=== PATIENT | male | born 1995 | race Caucasian/White ===

== ENCOUNTER 2017-02-11 18:33 | Emergency (ER) | payer OTHER ==
[~2017-02-11] VITALS: Ht 175.3 cm; Wt 98.5 kg
[~2017-02-11 18:33] MED LIST: NO MEDS
[2017-02-11 18:51] VITALS: Ht 175.3 cm; Wt 98.5 kg
--- NOTE | 2017-02-11 19:08 | ERA ---
ER Documentation Chief Complaint Date/Time DATE: 02/11/17 TIME: 19:08 Chief Complaint fell on his left shoulder HPI The patient is a 21-year-old male, presenting to the ER because he fell on the left shoulder about an hour prior to arrival. He denies any other injury, denies fever, chills, neck pain, chest pain, dyspnea, abdominal pain, vomiting. He does not smoke, drinks socially Past medical/surgical history: None ROS All systems reviewed and are negative except as per history of present illness. Medications Home Meds Active Scripts Ibuprofen* (Motrin*) 600 Mg Tab, 600 MG PO Q6H Y for PAIN AND OR ELEVATED TEMP, #20 TAB Prov:ELLIE NEWTON MD 02/11/17 Reported Medications [No Meds] No Conflict Check 08/22/10 Allergies Allergies: Coded Allergies: No Known Drug Allergies (Verified Allergy, Mild, 08/22/10) PMhx/Soc History of Surgery: No Anesthesia Reaction: No Hx Neurological Disorder: No Hx Respiratory Disorders: No Hx Cardiac Disorders: No Hx Psychiatric Problems: No Hx Miscellaneous Medical Probl: No Hx Alcohol Use: No Hx Substance Use: No Hx Tobacco Use: No Physical Exam Vitals Vital Signs Date Time Temp Pulse Resp B/P Pulse Ox O2 Delivery O2 Flow Rate FiO2 02/11/17 18:51 98.0 103 20 141/87 98 Physical Exam Const: No acute distress. Head: Atraumatic. Eyes: Normal Conjunctiva. ENT: Normal External Ears, Nose and Mouth. Neck: Full range of motion. No meningismus. Resp: Clear to auscultation bilaterally. Cardio: Regular rate and rhythm, no murmurs. Abd: Soft, non distended, normal bowel sounds, non tender. Skin: No petechiae or rashes. Back: No midline or flank tenderness. Ext: Mild left shoulder tenderness, no erythema, edema, ecchymosis Neur: Awake and alert. No focal deficit Psych: Normal Mood and Affect. Results 24 hrs Current Medications Medications (Trade) Dose Ordered Sig/Gabby Route PRN Reason Start Time Stop Time Status Last Admin Dose Admin Ketorolac Tromethamine (Toradol) 30 mg ONCE STAT IV 02/11/17 19:11 02/11/17 19:13 DC 02/11/17 19:42 Procedures/[address], [place] [address] Radiology Main Line: [phone] DIAGNOSTIC IMAGING REPORT Patient: WILBERTO MARK : 1995 Age: 21 Sex: M MR #: [id number] DOS: 02/11/17 1911 Ordering MD: ELLIE NEWTON MD Location: E/R Room/Bed: PROCEDURE: XR left Shoulder. CLINICAL INDICATION: Left shoulder pain. TECHNIQUE: Two views of the left shoulder are available for review. COMPARISON: None available FINDINGS: No evidence for fracture, subluxation or dislocation. No evidence for bone destructive or erosive changes. The bones are well mineralized. The acromion is type 2. no radiopaque foreign body is identified. IMPRESSION: 1. No fracture or dislocation is seen. 2. No evidence for bone destructive or erosive change. 3. No radiopaque foreign body is identified. RPTAT: XX .Bear Danielson MD, MD Date Time Electronically viewed and signed by .Bear Danielson MD, MD on 02/11/2017 20: 24 .T/ CC: ELLIE NEWTON MD MEDICAL MAKING DECISION: The patient is a 21-year-old male, presenting to the ER because of left shoulder pain. He was treated with Toradol 30 mg IV for pain with good response. The differential diagnoses considered include but are not limited to internal derangement, fracture, contusion, sprain Departure Diagnosis: Primary Impression: Shoulder injury Condition: Good Comments He was discharged with Motrin I discussed the findings with the patient. I advised the patient to follow-up with the primary physician in about 1-2 days, sooner if needed and return if any concern. He was advised that he may need to have an MRI if the pain is persistent The patient's blood pressure was elevated (>120/80) but appears stable without evidence of hypertension emergency or urgency. The patient was counseled about the risks of hypertension and urged to pursue outpatient monitoring and therapy within a week with their primary care physician. ELLIE NEWTON MD February 11, 2017 19:08
[2017-02-11] MEDS ORDERED: KETOROLAC 30 MG INJ IV STA (19:11)
--- NOTE | 2017-02-11 20:24 | RADRPT ---
PROCEDURE: XR left Shoulder. CLINICAL INDICATION: Left shoulder pain. TECHNIQUE: Two views of the left shoulder are available for review. COMPARISON: None available FINDINGS: No evidence for fracture, subluxation or dislocation. No evidence for bone destructive or erosive c hanges. The bones are well mineralized. The acromion is type 2. no radiopaque foreign body is ident ified. IMPRESSION: 1. No fracture or dislocation is seen. 2. No evidence for bone destructive or erosive change. 3. No radiopaque foreign body is identified. RPTAT: XX .Bear Danielson MD, Date Time Electronically viewed and signed by .Bear Danielson MD, on 02/11/2017 20:24 .T/
[2017-02-11] MEDS ORDERED: IBUP-1542 PO (20:27)
[2017-02-11 20:52] VITALS: BP 151/71; PULSE 87; RESP 17
== END 2017-02-11 20:53 | disposition home or self-care (01) ==
LOC: E/R 18:33
DX: S49.92XA Unspecified injury of left shoulder and upper arm, initial encounter (principal); R40.2252 Coma scale, best verbal response, oriented, at arrival to emergency department; R40.2142 Coma scale, eyes open, spontaneous, at arrival to emergency department; R40.2362 Coma scale, best motor response, obeys commands, at arrival to emergency department; W18.39XA Other fall on same level, initial encounter; Y92.9 Unspecified place or not applicable
CPT/HCPCS: 73030; J1885; 96374